=== PATIENT | female | born 1965 | race Caucasian/White ===

== ENCOUNTER → 2017-10-12 | Outpatient (CLI) | payer BC | END | disposition home or self-care (01) | LOC: C.LAB 07:28 | PROVIDERS: ATTEND Nutritionist | DX: R53.83 Other fatigue (principal) ==

== ENCOUNTER 2017-12-24 14:07 | Emergency (ER) | payer BC ==
[~2017-12-24] VITALS: Ht 165.1 cm; Wt 83.4 kg
[2017-12-24 14:09] VITALS: TEMP 36.7; Ht 165.1 cm; Wt 83.4 kg
--- NOTE | 2017-12-24 14:24 | EMERGENCY ROOM VISIT NOTE ---
History Report prepared by Kimi: Zachery Walker Under the Supervision of: Dr. Gerardo Howe M.D. First contact with patient: 14:13 Chief Complaint: CARDIAC ASSESSMENT Stated Complaint: HIGH BP History of Present Illness The patient is a 52 year old female who presents to the Emergency Room with complaints of persistent hypertension for the past week. The patient states that she also has a headache, she feels flushed, and she has swelling in her hands. She states that she checked her pressures this morning, and it was 174/ 105. The patient notes that she has a history of hypertension, and she increased her valsartan dose from 80mg to 160mg a few days ago. She denies any chest pain, shortness of breath, numbness, weakness, and blood in her stools. The patient has no other medical problems, and she has a family history of diabetes and cardiac disease. She states that she does not smoke. Source of History: patient Onset: the past week Position: other (generalized) Quality: other (hypertension) Timing: other (persistent) Associated Symptoms: + headache, No chest pain, No SOB, No weakness, No numbness Note: Associated symptoms: flushed and swelling in her hands Review of Systems See HPI for pertinent positives & negatives. A total of 10 systems reviewed and were otherwise negative. Past Medical & Surgical Medical Problems: (1) HTN (hypertension) Old medical records were reviewed. Nurse's notes were reviewed and I agree with. Family History Diabetes mellitus FH: heart disease Social History Smoking Status: Never Smoker Marital Status: Housing Status: lives with family Occupation Status: employed Current/Historical Medications Scheduled Cholecalciferol (Vitamin D), 1 TAB PO DAILY Magnesium Oxide (Mg Supplement (Magnesium), 500 MG PO DAILY Multivitamin (Multivitamin), 1 TAB PO DAILY Valsartan (Diovan), 160 MG PO DAILY Allergies Coded Allergies: No Known Allergies (Unverified , 12/24/17) Physical Exam Vital Signs Date Time Temp Pulse Resp B/P (MAP) Pulse Ox O2 Delivery O2 Flow Rate FiO2 12/24/17 16:45 91 171/97 96 12/24/17 15:49 90 20 158/86 99 Room Air 12/24/17 14:29 106 12/24/17 14:28 100 151/98 99 Room Air 12/24/17 14:28 100 Room Air 12/24/17 14:28 100 Room Air 12/24/17 14:09 36.7 123 18 156/83 99 Room Air Physical Exam General: Non-ill appearing middle aged female in no acute distress. HEENT: Normal cephalic atraumatic. Pupils are equal round and reactive to light. Extraocular movements are intact. Oropharynx is pink with moist mucous membranes. No swelling of the mouth lips or tongue. Neck: Supple with a midline trachea. No meningeal signs or stiffness, no JVD or bruits. No Stridor. Chest: Clear to auscultation bilaterally. No wheezes or rhonchi. No increased work of breathing. Heart: regular rate and rhythm. Abdomen: Soft nontender, nondistended without rebound guarding or rigidity. Extremities: No cyanosis clubbing or edema. No calf tenderness or assymetry Spine/Back. Non tender to palpation. No CVA tenderness Skin: Good turgor without rashes. Neurologic exam: Cranial nerves two through 12 are intact. Motor and sensation are intact and symmetrical throughout. Medical Decision & Procedures ER Provider Diagnostic Interpretation: Radiology results as stated below per my review and radiologist interpretation: SINGLE VIEW CHEST CLINICAL HISTORY: Atypical chest pain. FINDINGS: An AP, portable, upright chest radiograph is obtained. No prior studies are available for comparison at the time of dictation. The examination is mildly degraded by portable technique and patient rotation. The cardiomediastinal silhouette is unremarkable. The lungs and pleural spaces are clear. No pneumothorax is seen. The bony thorax is grossly intact. IMPRESSION: No active disease in the chest. Electronically signed by: Sherwin Bueno M.D. 12/24/2017 3:08 PM Dictated Date/Time: 12/24/2017 3:08 PM Laboratory Results 12/24/17 14:25 Red Blood Count 4.51, Mean Corpuscular Volume 93.1, Mean Corpuscular Hemoglobin 32.6, Mean Corpuscular Hemoglobin Concent 35.0, Mean Platelet Volume 11.0, Neutrophils (%) (Auto) 61.6, Lymphocytes (%) (Auto) 30.4, Monocytes (%) (Auto) 6.4, Eosinophils (%) (Auto) 1.4, Basophils (%) (Auto) 0.1, Neutrophils # (Auto) 4.89, Lymphocytes # (Auto) 2.41, Monocytes # (Auto) 0.51, Eosinophils # (Auto) 0.11, Basophils # (Auto) 0.01 12/24/17 14:25 Test 12/24/17 14:25 12/24/17 14:45 12/24/17 14:48 White Blood Count 7.94 K/uL (4.8-10.8) Red Blood Count 4.51 M/uL (4.2-5.4) Hemoglobin 14.7 g/dL (12.0-16.0) Hematocrit 42.0 % (37-47) Mean Corpuscular Volume 93.1 fL (80-100) Mean Corpuscular Hemoglobin 32.6 pg (25-34) Mean Corpuscular Hemoglobin Concent 35.0 g/dl (32-36) Platelet Count 246 K/uL (130-400) Mean Platelet Volume 11.0 fL (7.4-10.4) Neutrophils (%) (Auto) 61.6 % Lymphocytes (%) (Auto) 30.4 % Monocytes (%) (Auto) 6.4 % Eosinophils (%) (Auto) 1.4 % Basophils (%) (Auto) 0.1 % Neutrophils # (Auto) 4.89 K/uL (1.4-6.5) Lymphocytes # (Auto) 2.41 K/uL (1.2-3.4) Monocytes # (Auto) 0.51 K/uL (0.11-0.59) Eosinophils # (Auto) 0.11 K/uL (0-0.5) Basophils # (Auto) 0.01 K/uL (0-0.2) RDW Standard Deviation 42.1 fL (36.4-46.3) RDW Coefficient of Variation 12.4 % (11.5-14.5) Immature Granulocyte % (Auto) 0.1 % Immature Granulocyte # (Auto) 0.01 K/uL (0.00-0.02) Anion Gap 5.0 mmol/L (3-11) Est Creatinine Clear Calc Drug Dose 82.5 ml/min Estimated GFR () 90.0 Estimated GFR (Non- 77.7 BUN/Creatinine Ratio 14.6 (10-20) Calcium Level 8.9 mg/dl (8.5-10.1) Urine Color YELLOW Urine Appearance CLEAR (CLEAR) Urine pH 7.5 (4.5-7.5) Urine Specific [place] 1.010 (1.000-1.030) Urine Protein NEG (NEG) Urine Glucose (UA) NEG (NEG) Urine Ketones NEG (NEG) Urine Occult Blood TRACE (NEG) Urine Nitrite NEG (NEG) Urine Bilirubin NEG (NEG) Urine Urobilinogen NEG (NEG) Urine Leukocyte Esterase TRACE (NEG) Urine WBC (Auto) 1-5 /hpf (0-5) Urine RBC (Auto) 0-4 /hpf (0-4) Urine Hyaline Casts (Auto) 0 /lpf (0-5) Urine Epithelial Cells (Auto) 10-20 /lpf (0-5) Urine Bacteria (Auto) NEG (NEG) Bedside Troponin I < 0.030 ng/ml (0-0.045) Laboratory studies as stated above per my review. Medications Administered Medications (Trade) Dose Ordered Sig/Afsaneh Route Start Time Stop Time Status Last Admin Dose Admin Potassium Chloride (Klor-Con M10) 40 meq STK-MED ONCE .ROUTE 12/24/17 16:38 12/24/17 16:39 DC 12/24/17 16:45 40 MEQ ECG Per My Interpretation Indication: other (hypertension) Rate (beats per minute): 99 Rhythm: normal sinus Findings: no acute ischemic change, no ectopy, other (Sinus arrhythmia) Comparison ECG Date: no prior available ED Course 1413: Past medical records reviewed. The patient was evaluated in room B4, and a complete history and physical examination were performed. 1610: Upon reevaluation, the patient is resting comfortably. I discussed the results and treatment plan with her. She verbalized agreement of the treatment plan. The patient was discharged home. Medical Decision Differentials include, but are not limited to; hypertension, hypertensive emergency, CVA, electrolyte or metabolic abnormality. This patient comes in as described above. She comes in after having high blood pressure. It has been running on the high side for the last couple days and she doubled her medication a couple days ago. She has had mild headaches but otherwise asymptomatic. she has had no chest pain, shortness of breath, or neurologic problems. She looks well on exam EKG was obtained as well as multiple blood pressure testing. Her blood pressure here was significantly improved. She has remained stable. EKG is unremarkable. Troponin is not elevated. Her blood pressure is only minimally elevated at this point he does not need acute lowering. She just increased her medications about 3 days ago and I do not think she needs an acute change at this point. She hs no evidence of acute electrolyte or metabolic abnormalities or any evidence of any acute endorgan damage with the exception of a mildly low potassium of 3.2 and she was given 40 mEq of potassium chloride p.o. here as well as recommendation to increase her dietary potassium. I recommend that she check her blood pressure frequently and log it and follow-up with her regular doctor and return to the ER if: Worsening of symptoms, fever or chills, numbness or weakness, any new problems or concerns. She is happy to plan and discharged to home. Medication Reconcilliation Current Medication List: was personally reviewed by me Blood Pressure Screening Patient's blood pressure: Elevated blood pressure Blood pressure disposition: Referred to PCP Impression Primary Impression: HTN (hypertension) Additional Impressions: Dizzy Hypokalemia Scribe Attestation The scribe's documentation has been prepared under my direction and personally reviewed by me in its entirety. I confirm that the note above accurately reflects all work, treatment, procedures, and medical decision making performed by me. Departure Information Dispostion Home / Self-Care Referrals Joslyn Campbell PA-C (PCP) Forms IMPORTANT VISIT INFORMATION Patient Instructions My [facility] Additional Instructions Rest. Drink plenty of fluids. Return if: Worsening of symptoms, chest pain, shortness breath, any new problems or concerns Check and log her blood pressure and follow-up with your doctor on Thursday for recheck Problem Qualifiers
[2017-12-24 14:28] VITALS: O2SAT 100
[2017-12-24] MEDS ORDERED: MAGN500C PO (14:54)
[2017-12-24] MEDS ORDERED: CHOL400T PO (14:54)
[2017-12-24] MEDS ORDERED: DVN80 PO (14:54)
[2017-12-24] MEDS ORDERED: MULT-506 PO (14:54)
[2017-12-24 15:00] LABS: BASO % 0.1 %; BASO ABS # 0.01 K/uL (0-0.2); EOS % 1.4 %; EOS ABS # 0.11 K/uL (0-0.5); HEMOGLOBIN 14.7 g/dL (12.0-16.0); IG# 0.01 K/uL (0.00-0.02); LYMPH % 30.4 %; LYMPH ABS # 2.41 K/uL (1.2-3.4); MEAN CELL VOLUME 93.1 fL (80-100); MEAN CORPUSCULAR HEMOGLOBIN 32.6 pg (25-34); MONO % 6.4 %; MONO ABS # 0.51 K/uL (0.11-0.59); NEUT % 61.6 %; NEUT ABS # 4.89 K/uL (1.4-6.5); PLATELET COUNT 246 K/uL (130-400); RED CELL DISTRIBUTION WIDTH CV 12.4 % (11.5-14.5); RED CELL DISTRIBUTION WIDTH SD 42.1 fL (36.4-46.3); WHITE BLOOD COUNT 7.94 K/uL (4.8-10.8)
--- NOTE | 2017-12-24 15:10 | DIAGNOSTIC IMAGING REPORT ---
SINGLE VIEW CHEST CLINICAL HISTORY: Atypical chest pain. FINDINGS: An AP, portable, upright chest radiograph is obtained. No prior studies are available for comparison at the time of dictation. The examination is mildly degraded by portable technique and patient rotation. The cardiomediastinal silhouette is unremarkable. The lungs and pleural spaces are clear. No pneumothorax is seen. The bony thorax is grossly intact. IMPRESSION: No active disease in the chest. Electronically signed by: Sherwin Bueno M.D. 12/24/2017 3:08 PM Dictated Date/Time: 12/24/2017 3:08 PM
[2017-12-24 15:18] LABS: CALCIUM 8.9 mg/dl (8.5-10.1); CREATININE 0.87 mg/dl (0.60-1.20); POTASSIUM 3.2 mmol/L (3.5-5.1)
[2017-12-24] MEDS ORDERED: NURSING VERBAL MED ORDER ONE (16:35)
[2017-12-24] MEDS ORDERED: POTASSIUM CHLORIDE 10 MEQ TABCR ONE (16:38)
[2017-12-24 16:45] VITALS: BP 171/97; PULSE 91; O2SAT 96
== END 2017-12-24 16:47 | disposition home or self-care (01) ==
LOC: C.EDB 14:08
DX: I10 Essential (primary) hypertension (principal); R51 Headache; R42 Dizziness and giddiness; E87.6 Hypokalemia; Z83.3 Family history of diabetes mellitus; Z79.899 Other long term (current) drug therapy